=== PATIENT | male | born 1955 | race Two or more races ===

== ENCOUNTER 2021-07-11 20:40 | Inpatient (IN) | payer OTHER ==
[2021-07-11] MEDS ORDERED: BISMUTH SUBSALICYLATE 524 MG/30 ML PO PRN (22:41)
[2021-07-11] MEDS ORDERED: IBUPROFEN 400 MG TABLET (FP) PO PRN (22:41)
[2021-07-11] MEDS ORDERED: ACETAMINOPHEN 325 MG TABLET (FP) PO PRN ×2 (22:41)
[2021-07-11] MEDS ORDERED: MAGNESIUM HYDROX 2400MG/30ML ORAL SUSPENSION 30 ML CUP PO PRN (22:41)
[2021-07-11] MEDS ORDERED: MAGNESIUM CITRATE 300 ML BOTTLE PO PRN (22:41)
[2021-07-11] MEDS ORDERED: MENTHOL/PHENOL 1 EACH UD MM PRN (22:41)
[2021-07-11] MEDS ORDERED: diazePAM 5 MG TABLET PO PRN (22:43)
[2021-07-11 23:11] VITALS: BMI 31.3
[2021-07-11] MEDS ORDERED: TRIMETHOBENZAMIDE HCL 200MG/2ML INJ IM ONE ×2 (23:39→23:52)
[2021-07-12] MEDS: diazePAM 5 MG TABLET PO SCH ×5 (00:31→22:20)
[2021-07-12] MEDS: APIXABAN 5 MG TABLET PO SCH ×3 (00:31→22:19)
[2021-07-12] MEDS: ONDANSETRON *ODT* 4 MG TABLET SL PRN ×2 (03:00→11:16)
[2021-07-12] MEDS: METHOCARBAMOL 500 MG TABLET PO PRN (03:00)
[2021-07-12] MEDS: hydrOXYzine PAMOATE 25 MG CAPSULE (FP) PO PRN ×2 (05:15→17:14)
[2021-07-12] MEDS: MAG HYDROX/AL HYDROX/SIMETH 30 ML UNIT-DOSE CUP PO PRN ×2 (08:34→15:21)
[2021-07-12] MEDS: PRENATAL VITAMINS W/ FOLIC ACID TABLET (FP) PO SCH (10:30)
[2021-07-12] MEDS: HYDROCHLOROTHIAZIDE 25 MG TABLET (FP) PO SCH (10:31)
[2021-07-12] MEDS: ENALAPRIL MALEATE 10 MG TABLET PO SCH ×2 (10:31→22:19)
[2021-07-12] MEDS: ASPIRIN 81 MG CHEWABLE TABLETS PO SCH (10:31)
[2021-07-12 11:00] LABS: HEMATOCRIT 39.8 % (35.4-49); HEMOGLOBIN 13.7 GM/dL (11.7-16.9); MCH 31.9 pg (25.7-33.7); MCHC 34.3 g/dl (32.0-35.9); MEAN CELL VOLUME 92.8 fl (80-96); MEAN PLT VOLUME 6.3 fl (7.5-11.1); PLATELET COUNT 277 10^3/uL (134-434); RBC 4.29 M/mm3 (4.00-5.60); RDW 14.8 % (11.9-15.9); WHITE BLOOD COUNT 3.5 K/mm3 (4.0-10.0)
[2021-07-12 11:10] LABS: ALBUMIN 3.8 g/dl (3.4-5.0); BLOOD UREA NITROGEN 8.4 mg/dL (7-18); CALCIUM 8.9 mg/dL (8.5-10.1)
[2021-07-12 11:11] LABS: CREATININE 0.8 mg/dL (0.55-1.3)
[2021-07-12 11:13] LABS: BILIRUBIN,TOTAL 1.2 mg/dL (0.2-1); TOT PROT 7.3 g/dl (6.4-8.2)
[2021-07-12] MEDS ORDERED: DICYCLOMINE HCL 10 MG CAPSULE PO ONE (14:30)
[2021-07-12] MEDS: THIAMINE HCL 100 MG TABLET (FP) PO SCH (22:19)
[2021-07-12] MEDS: MELATONIN 5 MG TABLETS PO SCH (22:20)
[2021-07-13] MEDS: diazePAM 5 MG TABLET PO SCH ×3 (05:07→22:16)
[2021-07-13] MEDS: hydrOXYzine PAMOATE 25 MG CAPSULE (FP) PO PRN (05:09)
[2021-07-13] MEDS: METHOCARBAMOL 500 MG TABLET PO PRN (05:09)
[2021-07-13] MEDS: APIXABAN 5 MG TABLET PO SCH ×2 (10:17→22:16)
[2021-07-13] MEDS: PRENATAL VITAMINS W/ FOLIC ACID TABLET (FP) PO SCH (10:17)
[2021-07-13] MEDS: ASPIRIN 81 MG CHEWABLE TABLETS PO SCH (10:17)
[2021-07-13] MEDS: ENALAPRIL MALEATE 10 MG TABLET PO SCH ×2 (10:17→22:16)
[2021-07-13] MEDS: HYDROCHLOROTHIAZIDE 25 MG TABLET (FP) PO SCH (10:17)
[2021-07-13] MEDS: MAG HYDROX/AL HYDROX/SIMETH 30 ML UNIT-DOSE CUP PO PRN ×2 (10:22→22:35)
[2021-07-13 14:39] LABS: INR 1.12 (0.83-1.09); PROTHROMBIN TIME (PATIENT) 13.8 SEC (9.7-13.0)
[2021-07-13 15:04] LABS: CALCIUM 9.7 mg/dL (8.5-10.1)
[2021-07-13 15:05] LABS: ALBUMIN 3.7 g/dl (3.4-5.0); BLOOD UREA NITROGEN 12.3 mg/dL (7-18)
[2021-07-13 15:09] LABS: TOT PROT 7.2 g/dl (6.4-8.2)
[2021-07-13 15:10] LABS: BILIRUBIN,TOTAL 2.1 mg/dL (0.2-1)
[2021-07-13] MEDS: THIAMINE HCL 100 MG TABLET (FP) PO SCH (22:16)
[2021-07-13] MEDS: MELATONIN 5 MG TABLETS PO SCH (22:16)
[2021-07-14] MEDS: diazePAM 5 MG TABLET PO SCH ×2 (05:23→17:30)
[2021-07-14] MEDS: MAG HYDROX/AL HYDROX/SIMETH 30 ML UNIT-DOSE CUP PO PRN ×3 (05:27→22:21)
[2021-07-14] MEDS: HYDROCHLOROTHIAZIDE 25 MG TABLET (FP) PO SCH (10:08)
[2021-07-14] MEDS: ENALAPRIL MALEATE 10 MG TABLET PO SCH ×2 (10:08→22:20)
[2021-07-14] MEDS: PRENATAL VITAMINS W/ FOLIC ACID TABLET (FP) PO SCH (10:08)
[2021-07-14] MEDS: APIXABAN 5 MG TABLET PO SCH ×2 (10:08→22:20)
[2021-07-14] MEDS: ASPIRIN 81 MG CHEWABLE TABLETS PO SCH (10:08)
[2021-07-14] MEDS: METHOCARBAMOL 500 MG TABLET PO PRN ×2 (10:09→17:34)
[2021-07-14 14:40] LABS: HEMOGLOBIN 13.5 GM/dL (11.7-16.9); MCH 32.3 pg (25.7-33.7); MCHC 33.7 g/dl (32.0-35.9); MEAN CELL VOLUME 95.9 fl (80-96); PLATELET COUNT 248 10^3/uL (134-434); RBC 4.17 M/mm3 (4.00-5.60); RDW 14.9 % (11.9-15.9); WHITE BLOOD COUNT 4.8 K/mm3 (4.0-10.0)
[2021-07-14] MEDS: ONDANSETRON *ODT* 4 MG TABLET SL PRN (15:07)
[2021-07-14] MEDS: hydrOXYzine PAMOATE 25 MG CAPSULE (FP) PO PRN (17:29)
[2021-07-14] MEDS: MELATONIN 5 MG TABLETS PO SCH (22:20)
[2021-07-14] MEDS: THIAMINE HCL 100 MG TABLET (FP) PO SCH (22:20)
[2021-07-15] MEDS ORDERED: diazePAM 5 MG TABLET PO ONE (06:00)
[2021-07-15 09:20] VITALS: BP 143/90; PULSE 103; TEMP 98.4
[2021-07-15] MEDS: MAG HYDROX/AL HYDROX/SIMETH 30 ML UNIT-DOSE CUP PO PRN (09:48)
[2021-07-15] MEDS: ASPIRIN 81 MG CHEWABLE TABLETS PO SCH (09:48)
[2021-07-15] MEDS: APIXABAN 5 MG TABLET PO SCH (09:48)
[2021-07-15] MEDS: PRENATAL VITAMINS W/ FOLIC ACID TABLET (FP) PO SCH (09:48)
[2021-07-15] MEDS: HYDROCHLOROTHIAZIDE 25 MG TABLET (FP) PO SCH (09:48)
== END 2021-07-15 10:32 | disposition home or self-care (01) | DRG 775 ==
LOC: YASAS 20:40 → Y6N 23:13
PROVIDERS: ADMIT Allergy & Immunology; ATTEND Allergy & Immunology
PROC: HZ2ZZZZ Detoxification Services for Substance Abuse Treatment (ICD-10-PCS; principal; 2021-07-11)
DX: F10.230 Alcohol dependence with withdrawal, uncomplicated (principal); F10.282 Alcohol dependence with alcohol-induced sleep disorder; E87.1 Hypo-osmolality and hyponatremia; E80.6 Other disorders of bilirubin metabolism; E78.5 Hyperlipidemia, unspecified; I10 Essential (primary) hypertension; I48.91 Unspecified atrial fibrillation; Z79.01 Long term (current) use of anticoagulants; K29.50 Unspecified chronic gastritis without bleeding; N40.0 Benign prostatic hyperplasia without lower urinary tract symptoms; R74.01 Elevation of levels of liver transaminase levels; Z86.79 Personal history of other diseases of the circulatory system
CPT/HCPCS: 36415; 80053; 85027; 85610; 86780; 93005; 93010; C9803; Q0162; U0003; U0005